=== PATIENT | male | born 1955 | race African-American/Black ===

== ENCOUNTER 2025-05-16 09:05 | Inpatient (IN) | payer MEDICARE ==
[~2025-05-16] VITALS: Ht 188 cm; Wt 84.4 kg
[2025-05-16 09:15] VITALS: TEMP 97.9
[2025-05-16] MEDS ORDERED: GABAPENTIN600 MG PO (09:53)
[2025-05-16] MEDS ORDERED: KLOR-CON M2020 MEQ (09:53)
[2025-05-16] MEDS ORDERED: OMEPRAZOLE20 MG PO (09:53)
[2025-05-16] MEDS ORDERED: BUMETANIDE2 MG PO (09:53)
[2025-05-16] MEDS ORDERED: AIRSUPRA 90-810.7 GM (09:53)
[2025-05-16] MEDS ORDERED: CARVEDILOL25 MG PO (09:53)
[2025-05-16] MEDS ORDERED: ULTRAM 50MG50 MG (09:53)
[2025-05-16] MEDS ORDERED: FENOFIBRATE160 MG PO (09:53)
[2025-05-16] MEDS ORDERED: GLIMEPIRIDE2 MG PO (09:53)
[2025-05-16] MEDS ORDERED: NIFEDIAC CC60 MG PO (09:53)
[2025-05-16 10:04] LABS: BASOPHILS % 0.1 % (0.0-1.0); EOSINOPHILS % 0.2 % (0.0-6.0); LYMPHOCYTES % 8.3 % (18.0-39.1); MONOCYTES % 9.9 % (4.4-11.3); NEUTROPHILS % 81.0 % (38.7-80.0); RED CELL DISTRIBUTION WIDTH 15.5 % (11.7-14.4)
[2025-05-16 10:07] LABS: INR 1.09
[2025-05-16] MEDS: DEXTROSE 5% 1,000 ML IV SCH (10:10)
[2025-05-16] MEDS: DEXTROSE 50% SYRINGE 50 ML IV STA (10:11)
[2025-05-16 10:15] LABS: EST GLOMERULAR FILTRATION RATE 15.0 ML/MIN (>=60)
[2025-05-16] MEDS ORDERED: ONDANSETRON HCL INJ 2MG/ML 2ML 2 MG/ML VIAL IV PRN ×2 (10:30→14:00)
[2025-05-16] MEDS ORDERED: DEXTROSE 50% SYRINGE 50 ML IV PRN ×2 (10:30→14:00)
[2025-05-16 11:31] LABS: LEUKOCYTE ESTERASE ,URINE NEGATIVE (NEGATIVE); PROTEIN,URINE DIPSTICK 2+ (NEGATIVE); URINE UROBILINOGEN 2 mg/dL (0.2 - 1)
[2025-05-16 11:47] LABS: EPITHELIAL CELLS,URINE RARE /LPF
[2025-05-16] MEDS ORDERED: LIDOCAINE 4% PATCH TP PRN (14:00)
[2025-05-16] MEDS ORDERED: BENZONATATE 100 MG CAP PO PRN (14:00)
[2025-05-16] MEDS ORDERED: ALBUTEROL/IPRATROPIUM 3 ML NEB NEB PRN (14:00)
[2025-05-16] MEDS ORDERED: DOCUSATE SODIUM 100 MG CAP PO PRN (14:00)
[2025-05-16] MEDS ORDERED: ACETAMINOPHEN 325 MG TAB PO PRN (14:00)
[2025-05-16] MEDS ORDERED: DIPHENHYDRAMINE HCL 25 MG CAP PO PRN (14:00)
[2025-05-16] MEDS ORDERED: MELATONIN 5 MG TABLET PO PRN (14:00)
[2025-05-16] MEDS ORDERED: SIMETHICONE 80 MG CHEW PO PRN (14:00)
[2025-05-16 16:45] VITALS: PULSE 79; RESP 22
[2025-05-16] MEDS: ENOXAPARIN 30 MG/0.3 ML SYR SC SCH (17:00)
[2025-05-16] MEDS: ALBUTEROL/IPRATROPIUM 3 ML NEB NEB ONE (17:36)
[2025-05-16 18:02] VITALS: BP 156/90; PULSE 78; RESP 17; TEMP 97.8; O2SAT 98
[2025-05-16] MEDS ORDERED: VENTOLIN HFA18 GM INH (18:20)
[2025-05-16] MEDS ORDERED: MULTI-VITAMIN1 EACH PO (18:20)
[2025-05-16] MEDS ORDERED: VITAMIN D325 MCG PO (18:20)
[2025-05-16] MEDS: POTASSIUM CHLORIDE 20 MEQ TAB CR PO STA (18:31)
[2025-05-16] MEDS: FUROSEMIDE INJ 10 MG/ML 4 ML VIAL IV ONE (18:31)
[2025-05-16 19:17] VITALS: BP 156/90; PULSE 78; RESP 17; TEMP 97.8; O2SAT 98
[2025-05-16 20:00] VITALS: BP 153/96; PULSE 77; RESP 18; TEMP 98.6; O2SAT 97
[2025-05-17] VITALS (13 sets, daily range): BP systolic 150–187; BP diastolic 62–95; PULSE 74–85; RESP 16–20; TEMP 97.7–98.6; O2SAT 96–100
[2025-05-17 05:50] LABS: BASOPHILS % 0.0 % (0.0-1.0); EOSINOPHILS % 1.6 % (0.0-6.0); LYMPHOCYTES % 17.7 % (18.0-39.1); MONOCYTES % 13.9 % (4.4-11.3); NEUTROPHILS % 66.3 % (38.7-80.0); RED CELL DISTRIBUTION WIDTH 15.7 % (11.7-14.4)
[2025-05-17 06:23] LABS: CHOL/HDL RATIO 5.6 (3.9-4.7); LDL CHOLESTEROL 41.0 MG/DL (60-130); PHOSPHORUS 3.0 MG/DL (2.3-4.7)
[2025-05-17 06:26] LABS: EST GLOMERULAR FILTRATION RATE 18.0 ML/MIN (>=60)
[2025-05-17] MEDS: FUROSEMIDE INJ 10 MG/ML 4 ML VIAL IV SCH (08:54)
[2025-05-17] MEDS: PANTOPRAZOLE SOD 40 MG TABEC PO SCH (08:54)
[2025-05-17] MEDS: ASPIRIN 81 MG ENTERIC COATED PO SCH (08:54)
[2025-05-17] MEDS: HYDRALAZINE HCL 20 MG/ML VIAL IV PRN (11:16)
[2025-05-17] MEDS: FENOFIBRATE 145 MG TAB PO SCH (16:39)
[2025-05-17] MEDS: METOLAZONE 5 MG TAB PO ONE (16:39)
[2025-05-17] MEDS: CARVEDILOL 12.5 MG TAB PO SCH (16:39)
[2025-05-18] VITALS: BP 158/97; PULSE 78; RESP 20; TEMP 99.3; O2SAT 98
[2025-05-18 04:00] VITALS: BP 165/96; PULSE 74; RESP 19; TEMP 99.1; O2SAT 99
[2025-05-18 05:20] LABS: BASOPHILS % 0.4 % (0.0-1.0); EOSINOPHILS % 2.7 % (0.0-6.0); LYMPHOCYTES % 27.4 % (18.0-39.1); MONOCYTES % 18.1 % (4.4-11.3); NEUTROPHILS % 50.7 % (38.7-80.0); RED CELL DISTRIBUTION WIDTH 15.5 % (11.7-14.4)
[2025-05-18 05:44] LABS: EST GLOMERULAR FILTRATION RATE 19.0 ML/MIN (>=60)
[2025-05-18 08:05] VITALS: PULSE 74; RESP 16; O2SAT 96
[2025-05-18] MEDS: POTASSIUM CHLORIDE 20 MEQ TAB CR PO PRN (08:45)
[2025-05-18] MEDS: NIFEDIPINE CR 30 MG TAB PO SCH (08:49)
[2025-05-18 08:50] VITALS: BP 162/87; PULSE 71; RESP 19; TEMP 98.4; O2SAT 98
[2025-05-18 08:57] VITALS: BP 162/87; PULSE 71; RESP 19; TEMP 98.4; O2SAT 98
[2025-05-18] MEDS ORDERED: NIFEDIPINE PO SCH (09:00)
[2025-05-18 13:13] VITALS: BP 162/87; PULSE 70; RESP 18; TEMP 98.2; O2SAT 98
== END 2025-05-18 16:44 | disposition home or self-care (01) | DRG 638 ==
LOC: ER 09:09 → ERHOLD 10:20 → ICU 13:46 → ERHOLD 14:11 → MED/SURG 17:24
PROVIDERS: ADMIT Internal Medicine; ATTEND Internal Medicine
DX: E11.649 Type 2 diabetes mellitus with hypoglycemia without coma (principal); I13.2 Hypertensive heart and chronic kidney disease with heart failure and with stage 5 chronic kidney disease, or end stage renal disease; I50.9 Heart failure, unspecified; N18.4 Chronic kidney disease, stage 4 (severe); E11.22 Type 2 diabetes mellitus with diabetic chronic kidney disease; T38.3X5A Adverse effect of insulin and oral hypoglycemic [antidiabetic] drugs, initial encounter; T47.6X5A Adverse effect of antidiarrheal drugs, initial encounter; Z79.84 Long term (current) use of oral hypoglycemic drugs
CPT/HCPCS: 36415; 71045; 80048; 80053; 80061; 81001; 82550; 82948; 83036; 83735; 83880; 84100; 84443; 84484; 85025; 85610; 85730; 93005; 93970; 94799; 99284; J0360; J1650; J1938; J2470; J7070; J7799